=== PATIENT | female | born 2000 | race Caucasian/White ===

== ENCOUNTER 2021-06-02 13:22 | Emergency (ER) | payer SELFPAY ==
[2021-06-02 13:31] VITALS: BP 145/75; PULSE 86; RESP 16; TEMP 36.7; O2SAT 100
--- NOTE | 2021-06-02 13:34 | ED.DENTAL ---
HPI - Dental/Oral General Chief complaint: Dental/Oral Stated complaint: tooth pain Time Seen by Provider: 06/02/21 13:35 Mode of arrival: ambulatory Limitations: no limitations History of Present Illness HPI Narrative: 21-year-old female presents concern for left lower dental pain. She reports a month ago she had a filling fall out in a tooth. Reports it started hurting 2 days ago. Reports she has a dentist appointment on Monday. Reports she was told to be seen prior to then for an antibiotic. She denies any jaw swelling, difficulty swallowing, fever, headache. MD Complaint: tooth pain Related Data Allergies Allergy/AdvReac Type Severity Reaction Status Date / Time No Known Allergies Allergy Verified 06/02/21 13:41 Review of Systems Review of Systems: CONSTITUTIONAL: Denies malaise, chills, sweats, or fever. EYES: Denies visual changes ENT: Denies rhinorrhea, congestion, sinus pain, otalgia or sore throat. Reports left lower dental pain CARDIOVASCULAR: Denies chest pain, palpitations RESPIRATORY: Denies cough or dyspnea. SKIN: Denies rash or itching. MUSCULOSKELETAL: Denies myalgia. NEUROLOGIC: Denies numbness, weakness, or headache. All systems reviewed & are unremarkable except as noted in HPI and below PMFSH Comments At time of signature, agree with nursing past medical, surgical, social and family history. There is no relevant family history pertinent to the presenting complaint Exam Narrative: GENERAL: Well-appearing, well-nourished, and in no acute distress. HEAD: Normocephalic, atraumatic. EYES: PERRLA, sclera clear ENT: Nares clear, turbinates pink, no rhinorrhea or epistaxis. Mucous membranes moist. TM pearly schultz with sharp light reflex bilaterally; no tragal tenderness. Oropharynx without erythema or lesions. Tonsils not enlarged and without exudate. Tooth #20 broken without surrounding gingival erythema or edema, no periapical abscess NECK: Supple. No lymphadenopathy. CHEST: No respiratory distress. Speaks in full sentences. HEART: Regular rate and rhythm. SKIN: Warm, dry, no visible rash. NEURO: Alert and oriented x3. PSYCH: Normal mood and affect Course Course Emergency Course: Patient is aware of diagnosis, understands and agrees to treatment plan. Anticipatory guidance given. Patient agrees to follow-up as directed and is aware of reasons to seek care at the emergency department. Portions of this record may have been created with voice recognition software Level of Care: Express Care Visit Vital Signs Vital signs: Vital Signs Temperature 98.1 F 06/02/21 13:31 Pulse Rate 86 06/02/21 13:31 Respiratory Rate 16 06/02/21 13:31 Blood Pressure 145/75 H 06/02/21 13:31 Pulse Oximetry 100 06/02/21 13:31 Temperature 98.1 F 06/02/21 13:31 Pulse Rate 86 06/02/21 13:31 Respiratory Rate 16 06/02/21 13:31 Blood Pressure 145/75 H 06/02/21 13:31 Pulse Oximetry 100 06/02/21 13:31 Reviewed. MDM - Dental/Oral MDM Narrative Medical decision making narrative: Patients pain and complaint coupled with physical findings are consistant with dentalgia. There are no focal signs of space occupying lesions that are compromising to the airway; no dysphagia, odynophagia, dysphonia, or dyspnea. No uvular deviation or soft palate edema. Patient is non-toxic appearing. The floor of the mouth is soft with no signs of Jp's Angina; no induration below mandible, no neck pain. Patient is without trismus or drooling and able to swallow secretions. Patient is felt appropriate for discharge home with dental follow up. Differential Diagnosis Differential diagnosis: Likely gingival abscess, dental caries, toothache, dental abscess, fracture of tooth and aphthous ulcer Critical Care Time Critical Care Time Critical Care Time: No Discharge Plan Discharge Clinical Impression: Toothache Patient Disposition: Home, Self-Care Condition: Stable Instructions: Antibiotic Form, Tooth
== END 2021-06-02 13:46 | disposition home or self-care (01) ==
PROVIDERS: Emergency Provider Nurse Practitioner
DX: K08.89 Other specified disorders of teeth and supporting structures (principal)
CPT/HCPCS: 99203; G0463

== ENCOUNTER 2022-02-14 18:47 | Emergency (ER) | payer SELFPAY ==
[2022-02-14 19:01] VITALS: BP 126/67; PULSE 87; RESP 16; TEMP 36.8; O2SAT 100
--- NOTE | 2022-02-14 19:33 | ED.FEMALEGU ---
HPI - Female Genitourinary General Chief complaint: Vaginal Bleeding Stated complaint: vaginal bleed, cramping Time Seen by Provider: 02/14/22 19:18 History of Present Illness HPI Narrative: Patient is a 20-year-old G2, P0 female who has a history of a missed here for evaluation of vaginal bleeding and cramping for the past day. States the cramping is diffuse across her lower abdomen, and she has had only light spotting today. Patient took 2 positive test at home last week. She does not have an PSYCH NP and has not established care with any provider yet. Denies fevers, chills, nausea, vomiting. Has not taken any medicine for the pain. States it feels similar to her menstrual cycle. Related Data Allergies Allergy/AdvReac Type Severity Reaction Status Date / Time No Known Allergies Allergy Verified 02/14/22 19:07 Review of Systems Review of Systems: Gen: Denies fevers or chills Eyes: Denies eye pain or visual change ENT: Denies congestion Respiratory: Denies shortness of breath or cough CV: Denies chest pain or palpitations GI: Reports lower abdominal cramping. Denies nausea, emesis or diarrhea : Reports vaginal spotting. Denies burning, urgency, frequency or hematuria Musculoskeletal: Denies back pain or muscle pain Neuro: Denies numbness, tingling, weakness or focal weakness Skin: Denies rash Except as documented, all other systems reviewed and negative Exam Narrative: APPEARANCE: Well appearing, no pain in distress, well-nourished. Head: Normocephalic and atraumatic. EYES: PERRLA/EOMI, conjunctivae clear NOSE: No nasal drainage EARS: External ear normal in appearance THROAT: Oropharynx is clear. Mucous membranes are moist. NECK: Supple. No adenopathy, no masses. RESPIRATORY: Airway patent, respirations nonlabored. Clear to auscultation bilaterally, no rales, rhonchi, wheezing. CARDIOVASCULAR: Regular rate and rhythm without murmurs, rubs, or gallops. ABDOMINAL: Normoactive bowel sounds. Soft, nontender, nondistended. No rebound tenderness or guarding. MUSCULOSKELETAL: Extremities are warm and well-perfused. Moves all extremities well. No edema. NEURO: Normal speech. No focal neurologic deficits. SKIN: Skin is warm and dry. No rashes. PSYCHIATRIC: Normal affect/mood. Course Vital Signs Vital signs: Vital Signs Temperature 98.3 F 02/14/22 19:01 Pulse Rate 87 02/14/22 19:01 Respiratory Rate 16 02/14/22 19:01 Blood Pressure 126/67 02/14/22 19:01 Pulse Oximetry 100 02/14/22 19:01 Oxygen Delivery Room Air 02/14/22 19:01 Temperature 98.3 F 02/14/22 19:01 Pulse Rate 86 02/14/22 21:15 Respiratory Rate 18 02/14/22 21:15 Blood Pressure 126/67 02/14/22 19:01 Pulse Oximetry 97 02/14/22 21:15 Oxygen Delivery Room Air 02/14/22 19:01 MDM - Female Genitourinary MDM Narrative Medical decision making narrative: 22-year-old female here for evaluation of vaginal bleeding and lower abdominal cramping that she likens to her normal menstrual cycle in the setting of a positive home test last week. Patient is nontoxic-appearing and she has normal vital signs. Her bedside is negative. Her quant is undetectable. Unclear why patient had a positive test at home last week, she states that this happened last time she was as well. Her hemoglobin and hematocrit are normal. She declines pelvic exam which I feel is reasonable at this time. patient is not currently so no need to rule out ectopic. She will be encouraged to follow-up with her primary care provider, patient symptoms today are likely due to a normal menstrual cycle. She was given reasons to return to the ED and she voiced understanding. Lab Data Result diagrams: 02/14/22 19:39 02/14/22 19:39 Labs: Lab Results 02/14/22 02/14/22 02/14/22 Range/Units 19:39 19:39 19:39 WBC 9.3 (4.5-10.0) K/mm3 RBC 4.93 (4.2-5.4) M/mm3 Hg
[2022-02-14 19:58] LABS: Basophils Absolute Auto 0.1 K/mm3 (0.0-0.1); Basophils Percent Auto 0.5 % (0.2-1.2); Eosinophils Absolute Auto 0.2 K/mm3 (0-0.3); Eosinophils Percent Auto 1.7 % (0-4.4); Hematocrit 44.7 % (37.0-47.0); Immature Granulocyte Absolute 0.05 K/mm3 (0.00-0.031); Immature Granulocyte Percent A 0.5 % (0-0.5); Lymphocytes Absolute Auto 1.42 K/mm3 (0.9-3.2); Lymphocytes Percent Auto 15.3 % (18.3-44.2); Mean Corpuscular HGB Conc 33.6 g/dl (32-36); Mean Corpuscular Hemoglobin 30.4 pg (26-34); Mean Corpuscular Volume 90.7 fl (80-100); Mean Platelet Volume 9.3 fl (7.4-10.4); Monocytes Absolute Auto 0.6 K/mm3 (0.1-0.6); Monocytes Percent Auto 6.6 % (2.6-8.5); Neutrophils Percent Auto 75.4 % (45.5-73.1); Platelet Count Result 356 k/mm3 (150-375); Red Blood Count 4.93 M/mm3 (4.2-5.4); Red Cell Distribution Width 12.6 % (11.5-14.5); White Blood Count 9.3 K/mm3 (4.5-10.0)
[2022-02-14 20:00] LABS: Alanine Aminotransferase 35 U/L (6-35); Albumin Level 4.6 g/dL (3.5-5.1); Alkaline Phosphatase 71 U/L (38-126); Anion Gap 10 mmol/L (8-16); Aspartate Amino Transferase 35 U/L (14-36); Bilirubin,Total 1.1 mg/dL (0.2-1.3); Blood Urea Nitrogen 8 mg/dL (7-17); Calcium 8.7 mg/dL (8.4-10.2); Carbon Dioxide 24 mmol/L (22-30); Chloride 104 mmol/L (98-107); Estimated CRCL calculation 92 ml/min; Estimated Glomerular Filt Rate > 60; Glucose 105 mg/dL (65-110); Potassium 3.5 mmol/L (3.4-5.0); Sodium 138 mmol/L (137-145)
[2022-02-14 20:08] LABS: Add Urine Microscopic? YES; Appearance Urine Cloudy (Clear); Bacteria Urine Trace /hpf; Bilirubin Urine Negative (Negative); Blood Urine 3+ (Negative); Color Urine Yellow (Yellow); Glucose Urine UA Negative (Negative); Ketones Urine Negative (Negative); Leukocyte Esterase Ur Negative LEU/UL (Negative); Mucus Urine Rare /lpf; Nitrate Urine Negative (Negative); Protein Urine 1+ mg/dL (Negative); RBC Urine >75 /hpf (0-2); Specific Grav Ur 1.016 (1.001-1.035); Squamous Epithelial Cell Urine Few /hpf (Few); Urobilinogen Urine Negative mg/dL (<2.0)
[2022-02-14 20:16] LABS: Beta HCG Quantitative < 2.39 mIU/ML
[2022-02-14 21:15] VITALS: PULSE 86; RESP 18; O2SAT 97
== END 2022-02-14 21:17 | disposition home or self-care (01) ==
LOC: ANHED 20:43
PROVIDERS: Physician Assistant; Emergency Provider Preventive Medicine Aerospace Medicine
DX: N93.9 Abnormal uterine and vaginal bleeding, unspecified (principal)
CPT/HCPCS: 36415; 80053; 81001; 81025; 84702; 85025; 85461; 87086; 87088; 99283